=== PATIENT | female | born 1995 | race Caucasian/White ===

== ENCOUNTER 2025-06-25 20:14 | Emergency (ER) | payer OTHER ==
[2025-06-25 20:19] VITALS: BP 120/81; PULSE 82; RESP 18; TEMP 98.1; BMI 27.4
== END 2025-06-25 21:04 | disposition home or self-care (01) ==
LOC: FER 20:14
DX: Z48.02 Encounter for removal of sutures (principal)
CPT/HCPCS: 99281-25